=== PATIENT | female | born 1980 ===

== ENCOUNTER 2021-05-22 10:16 | Inpatient (IN) ==
[2021-05-22] MEDS ORDERED: Lactated Ringers 1000 ml BAG 1,000 ML IV ONE (10:32)
[2021-05-22] MEDS ORDERED: Buffered Lidocaine 1% SYRIN 1 ml INTRADERM ONE (10:32)
[2021-05-22] MEDS ORDERED: Dinoprostone 10 MG VAG.SUPP VAGINAL ONE (10:52)
[2021-05-22] MEDS ORDERED: Lactated Ringers 1000 ml BAG 1,000 ML IV SCH (11:00)
[2021-05-22 12:20] LABS: ABS Eosinophils 0.1 10^3/ul (0-0.6); ABS Lymphocytes 2.2 10^3/ul (1.0-4.8); ABS Monocytes 0.8 10^3/ul (0-0.8); ABS Neutrophils 6.5 10^3/ul (1.5-7.7); Eosinophil % 0.7 %; Hematocrit 33 % (35-47); Hemoglobin 11.7 g/dL (12.0-16.0); Lymphocyte % 22.9 %; Mean Corpuscular HGB Conc 36 g/dL (31-36); Mean Corpuscular Hemoglobin 35 pg (27-31); Mean Corpuscular Volume 96 fL (80-97); Mean Platelet Volume 9.6 fL (7.4-10.4); Platelet Count 193 10^3/uL (150-450); Red Blood Count 3.38 10^6 /uL (3.70-4.87); Red Cell Distribution Width 13 % (10-15); White Blood Count 9.7 10^3/uL (3.5-10.8)
[2021-05-22 12:46] LABS: Urine Benzodiazepine Screen None Detected (None Detect); Urine Cannabinoids Screen None Detected (None Detect); Urine Opiates Screen None Detected (None Detect)
[2021-05-23] MEDS ORDERED: Oxytocin in LR 20 UNITS/1,000 ML BAG IVPB SCH ×2 (01:00→09:00)
[2021-05-23] MEDS ORDERED: OBEPIDURAL 250 ML EPIDURAL ONE (02:31)
[2021-05-23] MEDS ORDERED: Lactated Ringers 1000 ml BAG 1,000 ML IV ONE (03:32)
[2021-05-23] MEDS ORDERED: EPHEDrine (Pressors) 50 MG/ML VIAL IV PUSH PRN (03:32)
[2021-05-23 03:59] LABS: Urine Appearance Cloudy; Urine Bilirubin Negative (Negative); Urine Blood Negative (Negative); Urine Color Yellow; Urine Glucose Negative (Negative); Urine Ketones Trace (Negative); Urine Nitrite Negative (Negative); Urine Protein Negative (Negative); Urine Urobilinogen Negative (Negative)
[2021-05-23] MEDS ORDERED: OBEPIDURAL 250 ML EPIDURAL SCH (04:00)
[2021-05-23] MEDS ORDERED: Lactated Ringers 1000 ml BAG 1,000 ML IV SCH ×2 (04:00→09:00)
[2021-05-23] MEDS ORDERED: ceFAZolin 2 GM PREMIX 2 GM/50 ML BAG ONE (08:15)
[2021-05-23] MEDS ORDERED: ceFAZolin 2 GM PREMIX 2 GM/50 ML BAG IVPB ONE (08:39)
[2021-05-23] MEDS: Witch Hazel PAD JAR TOPICAL PRN (09:27)
[2021-05-23] MEDS: Dibucaine 1% OINT 28.35 GM TUBE PR PRN (09:27)
[2021-05-23] MEDS ORDERED: Lidocaine 1% VIAL 10 MG/ML VIAL ONE (14:09)
[2021-05-24 06:24] LABS: ABS Eosinophils 0.2 10^3/ul (0-0.6); ABS Lymphocytes 2.8 10^3/ul (1.0-4.8); ABS Monocytes 0.6 10^3/ul (0-0.8); ABS Neutrophils 5.4 10^3/ul (1.5-7.7); Eosinophil % 2.4 %; Hematocrit 27 % (35-47); Hemoglobin 9.3 g/dL (12.0-16.0); Lymphocyte % 30.5 %; Mean Corpuscular HGB Conc 35 g/dL (31-36); Mean Corpuscular Hemoglobin 35 pg (27-31); Mean Corpuscular Volume 98 fL (80-97); Mean Platelet Volume 9.3 fL (7.4-10.4); Platelet Count 159 10^3/uL (150-450); Red Blood Count 2.71 10^6 /uL (3.70-4.87); Red Cell Distribution Width 13 % (10-15); White Blood Count 9.1 10^3/uL (3.5-10.8)
[2021-05-24] MEDS: Dibucaine 1% OINT 28.35 GM TUBE PR PRN (20:51)
[2021-05-25 07:41] VITALS: BP 106/64
[2021-05-25] MEDS: Witch Hazel PAD JAR TOPICAL PRN (11:35)
== END 2021-05-25 14:30 | disposition home or self-care (01) ==
LOC: MCHOBOUT 10:16 → MCHOB 10:55
PROVIDERS: ADMIT Obstetrics & Gynecology; ATTEND Obstetrics & Gynecology